=== PATIENT | female | born 1950 | race Caucasian/White ===

== ENCOUNTER 2020-06-30 00:13 | Emergency (ER) | payer MEDICARE, SELFPAY ==
[2020-06-30 00:23] VITALS: BP 124/74; PULSE 84; RESP 15; TEMP 36.3; O2SAT 99; BMI 21.1
[2020-06-30] MEDS: LIDO 1%/SOD BICARB 8.4% (10ML) 10 ML SYRINGE INJ (00:35)
[2020-06-30] MEDS: AMOXICILLIN/CLAV 875/125 MG 1 TAB PO (00:36)
--- NOTE | 2020-06-30 05:47 | ED_ITS ---
HPI - Animal Bite General Chief Complaint: Animal Bite Stated Complaint: laceration to lower lip Time Seen by Provider: 06/30/20 00:13 Source: patient Mode of arrival: Ambulatory Limitations: no limitations History of Present Illness HPI narrative: 69-year-old female nonsmoker with noncontributory medical history presents with a chief complaint of a dog bite on her lower lip. She was playing with the dog that is known to her, and current on its shots when it nipped her on the bottom lip. She had minimal bleeding [place] be seen tonight for definitive care. She denies any other injury and is otherwise well and free of complaint MD complaint: animal bite Onset (ago): hour(s) Animal: dog Description of animal: household pet Mechanism: bite Location: face Pain description: sharp Severity scale (1-10): 3 Context: playing with animal Associated symptoms: none Treatments prior to arrival: wound dressing(s) Related Data Patient tetanus UTD: Yes Previous Rx's Medication Instructions Recorded amoxicillin-pot clavulanate 1 tab PO BID #20 tab 06/30/20 [Augmentin] Allergies Allergy/AdvReac Type Severity Reaction Status Date / Time No Known Drug Allergies Allergy Verified 06/30/20 00:23 Review of Systems Constitutional Constitutional: Denies chills, Denies fatigue, Denies fever(s), Denies frequent falls, Denies lethargy and Denies weakness Eyes Eyes: Denies change in vision, Denies eye discharge, Denies irritation and Denies loss of vision ENT Ears, Nose, Mouth, and Throat: Denies change in voice, Denies dizziness, Denies neck pain, Denies sore throat and Denies throat swelling Cardiovascular Cardiovascular: Denies chest pain, Denies irregular heart rhythm, Denies lightheadedness, Denies palpitations, Denies dyspnea, Denies dyspnea on exertion and Denies orthopnea Respiratory Respiratory: Denies cough, Denies dyspnea, Denies dyspnea on exertion and Denies wheezing Gastrointestinal Gastrointestinal: Denies abdominal pain, Denies change in bowel habits, Denies diarrhea, Denies nausea and Denies vomiting Musculoskeletal Musculoskeletal: Denies neck pain and Denies numbness Integumentary/Breasts Skin/Breast: Denies pruritus, Denies erythema, Denies rash and Reports wounds Neurologic Neurologic: Denies behavioral changes, Denies confusion, Denies dizziness, Denies frequent falls, Denies loss of vision, Denies numbness and Denies weakness Psychiatric Psychiatric: Denies anxiety, Denies behavioral changes, Denies confusion, Denies depression, Denies homicidal ideation and Denies suicidal ideation Endocrine Endocrine: Denies fatigue, Denies flushing and Denies palpitations Hematologic/Lymphatic Hematologic/Lymphatic: Denies easy bruising Allergic/Immunologic Allergic/Immunologic: Denies urticaria, Denies throat swelling and Denies wheezing Patient History Social History Smoking Status: Never smoker Smoking Status: Never smoker Substance Use Type: does not use Exam Narrative Exam Narrative: GEN: AOx3 and in mild distress EYES: Pupils are equal, round, and reactive to light and accommodation. Extra occular muscles are intact bilaterally. There is no subconjunctival hemorrhage or exudate. CHEST: Lungs are clear to auscultation bilaterally and free of wheezes, rales, or rhonchi. Heart rate is regular rhythm, there are no murmurs, clicks, rubs, or gallops. There is no chest wall tenderness. ABD: Abdomen is soft and nontender. There is no guarding or rebound. Bowel sounds are normal in all 4 quadrants. There is no mass or organomegaly. EXT: Full painless ROM of all extremities with no loss of sensation or strength. SKIN: 0.5cm laceration in midline of lower lip. It is not through and through. It does cross the angel border. Initial Vital Signs Initial Vital Signs: Vital Signs Temperature 97.3 F L 06/30/20 00:23 Pulse Rate 84 06/30/20 00:23 Respiratory Rate 15 06/30/20 00:23 Blood Pressure 124/74 06/30/20 00:23 Pulse Oximetry 99 06/30/20 00:23 Procedures Laceration Repair Laceration 1: Site: lip Size (cm): 0.5 Description: flap Depth: simple, single layer Local Anesthetic: lidocaine 1% and with bicarb Amount of anesthesia used (mL): 4 Pre-repair: wound explored Skin layer closed with: nylon Size (cm): 6-0 Number of sutures: 2 Technique: simple, interrupted Course Orders Ordered: Discontinued Medications Amoxicillin/Clavulanate Potassium (Augmentin 875-125 Mg) 1 tab PO NOW ONE Stop: 06/30/20 00:19 Last Admin: 06/30/20 00:36 Dose: 1 tab Documented by: MICHELLE Lidocaine/Sodium Bicarbonate (Buffered Lidocaine 10 Ml Syr) 10 ml INJ NOW ONE Stop: 06/30/20 00:19 Last Admin: 06/30/20 00:35 Dose: 10 ml Documented by: MICHELLE Vital Signs Vital signs: Vital Signs - 8 hr 06/30/20 00:23 Temperature 97.3 F L Pulse Rate 84 Respiratory Rate 15 Blood Pressure 124/74 Pulse Oximetry 99 Discharge Plan Departure Patient Disposition: Home Clinical Impression: Bite by animal Complicated laceration of lip Qualifiers: Encounter type: initial encounter Qualified Code(s): S01.511A - Laceration without foreign body of lip, initial encounter Discharge Date/Time: 06/30/20 00:57 Instructions: DI for Dog Bite Activity Restrictions/Additional Instructions: Please keep the wound clean and dry to the best of your ability. Please monitor for signs of infection such as redness to the skin or increasing pain. Have the sutures removed by your doctor in about 7 days. If you are unable to get into your doctor, we would be happy to remove the sutures in that same timeframe. Prescriptions: New amoxicillin-pot clavulanate [Augmentin] 875-125 mg tablet 1 tab PO BID Qty: 20 RF: 0
== END 2020-06-30 00:57 | disposition home or self-care (01) ==
PROVIDERS: Emergency Provider Emergency Medicine
DX: S01.551A Open bite of lip, initial encounter (principal); S01.511A Laceration without foreign body of lip, initial encounter; W54.0XXA Bitten by dog, initial encounter
CPT/HCPCS: 12011; 99283